=== PATIENT | male | born 1940 | race Caucasian/White ===

== ENCOUNTER 2023-03-10 11:43 | Outpatient (OUT) | payer MEDICARE, SELFPAY ==
[2023-03-10 12:21] LABS: Basophils Absolute Auto 0.1 10^3/uL (0.0-0.1); Basophils Percent Auto 0.6 % (0.2-2.0); Eosinophils Absolute Auto 0.1 10^3/uL (0.0-0.7); Eosinophils Percent Auto 1.4 % (0.9-7.0); Hematocrit 41.1 % (42.0-54.0); Hemoglobin 13.5 g/dL (14.0-18.0); Immature Granulocytes Abs Auto 0.03 10^3/uL (0.00-0.03); Immature Granulocytes Pct Auto 0.4 % (0.0-0.5); Lymphocytes Absolute Auto 1.7 10^3/uL (1.2-3.8); Lymphocytes Percent Auto 21.7 % (20.5-60.0); Mean Corpuscular HGB Conc 32.8 g/dL (29.9-35.2); Mean Corpuscular Hemoglobin 31.2 pg (25.9-34.0); Mean Corpuscular Volume 94.9 fL (80.0-94.0); Mean Platelet Volume 11.7 fL (9.5-13.5); Monocytes Absolute Auto 0.7 10^3/uL (0.3-0.8); Monocytes Percent Auto 9.2 % (1.7-12.0); Neutrophils Absolute Auto 5.2 10^3/uL (1.4-6.5); Neutrophils Percent Auto 66.7 % (43.0-75.0); Platelet Count 152 10^3/uL (150-450); Red Blood Count 4.33 10^6/uL (4.70-6.10); Red Cell Distribution Width 13.8 % (11.0-15.0); White Blood Count 7.8 10^3/uL (4.0-11.0)
[2023-03-10 12:41] LABS: Estimated Average Glucose 134 mg/dL; Glycohemoglobin A1C 6.3 % (4.5-6.2)
[2023-03-10 12:49] LABS: Alanine Aminotransferase 21 U/L (16-63); Albumin Globulin Ratio 0.9; Albumin Level 3.7 g/dL (3.4-5.0); Alkaline Phosphatase 95 U/L (46-116); Anion Gap 14.8; Aspartate Amino Transferase 17 U/L (15-37); BUN Creatinine Ratio 20.5; Bilirubin Total 0.7 mg/dL (0.2-1.0); Calcium 9.5 mg/dL (8.5-10.1); Carbon Dioxide 24.7 mmol/L (21.0-32.0); Chloride 105 mmol/L (98-107); Chol HDL Ratio 2.5; Cholesterol 128 mg/dL (<=200); Estimated GFR (African America 45 (>=60); Estimated GFR (Non-African Ame 37 (>=60); Free T3 2.21 pg/mL (2.18-3.98); Globulin 4.2 g/dL; Glucose 100 mg/dL (74-106); HDL Cholesterol 51 mg/dL (40-60); LDL Cholesterol Calculated 57.2 mg/dL; Potassium 4.5 mmol/L (3.5-5.1); Sodium 140 mmol/L (136-145); Thyroid Stimulating Hormone 3.753 uIU/mL (0.358-3.740); Total Protein 7.9 g/dL (6.4-8.2); Triglycerides 99 mg/dL (<=150); VLDL CHOLESTEROL 19.8 mg/dL
[2023-03-10 13:57] LABS: Prostate Specific Antigen Scrn 1.51 ng/mL (<=4.00)
== END 2023-03-10 11:44 | disposition home or self-care (01) ==
LOC: LAB 11:51
PROVIDERS: PCP Family Medicine; Visit Provider Family Medicine
DX: E78.00 Pure hypercholesterolemia, unspecified (principal); I10 Essential (primary) hypertension; E61.1 Iron deficiency; R73.09 Other abnormal glucose; Z12.5 Encounter for screening for malignant neoplasm of prostate
CPT/HCPCS: 36415; 80053; 80061; 83036; 84436; 84443; 84481; 85025; G0103

== ENCOUNTER 2023-04-06 08:21 | Outpatient (OUT) | payer MEDICARE, SELFPAY ==
--- OUTSIDE RECORDS SUMMARY | 2023-04-06 08:25 | XMS_ITS | CCD ---
Author Name Unknown Address [address] [place] [address] Organization [facility] Care Team Providers Care Component Inspector Name Role Phone TEVIN ESTRADA Referring Unavailable SAVANNAH HELM Primary Care Unavailable Savannah Helm Primary Care Provider DR SAVANNAH HELM Attending Unavailable DR SAVANNAH HELM Consulting Unavailable DR SAVANNAH HELM Primary Care Unavailable DR SAVANNAH HELM Admitting Unavailable Medications Current Medications Medication Drug Class(es) Dates Sig (Normalized) Sig (Original) amLODIPine 5 mg oral tablet (1 source) Dihydropyridine Calcium Channel Rachel take 1 tablet by mouth once daily amLODIPine (NORVASC) 5 MG tablet Take 5 mg by mouth daily 0 Active Artificial Tear Ointment (REFRESH LACRI-LUBE OP) (1 source) Artificial Tear Ointment (REFRESH LACRI-LUBE OP) Apply to eye 0 Active aspirin 81 mg delayed release oral tablet (2 sources) Platelet Aggregation Inhibitor, Nonsteroidal Anti-inflammatory Drug Start: 06-15-2017 take 1 tablet by mouth once daily aspirin EC 81 MG EC tablet Take 1 tablet by mouth daily 30 tablet 3 06/15/2017 Active take 1 tablet by mouth once jayant y aspirin 81 MG tablet Take 81 mg by mouth daily 0 Active atorvastatin 40 mg oral tablet (1 source) HMG-CoA Reductase Inhibitor Start: 06-15-2017 take 1 tablet by mouth once daily atorvastatin (LIPITOR) 40 MG tablet Take 1 tablet by mouth daily 30 tablet 3 06/15/2017 Active Problems Problem Classification Problem Date Documented Da te Episodic/Chronic Aortic; peripheral; and visceral artery aneurysms (2 sources) Ruptured abdominal aortic aneurysm; Translations: [Abdominal aortic aneurysm without rupture] Onset: 06-14-2017 Resolved: 06-15-2017 06-15-2017 Chronic Conditions associated with dizziness or vertigo (1 source) Other peripheral vertigo, unspecified ear; Translations: [OTHER PERIPHERAL VERTIGO UNS EAR] Onset: 02-09-2022 Episodic Deficiency and other anemia (1 source) Anemia, unspecified; Translations: [ANEMIA UNSPECIFIED] Onset: 02-09-2022 Episodic Diabetes mellitus without complication (1 source) Other abnormal glucose; Translations: [OTHER ABNORMAL GLUCOSE] Onset: 02-09-2022 Episodic Disorders of lipid metabolism (1 source) Hyperlipidemia, unspecified; Translations: [HYPERLIPIDEMIA UNSPECIFIED] Onset: 02-09-2022 Chronic Essential hypertension (4 sources) Essential (primary) hypertension; Translations: [ESSENTIAL PRIMARY HYPERTENSION] Onset: 02-05-2022 Chronic Gout and other crystal arthropathies (1 source) Gout, unspecified; Translations: [GOUT UNSPECIFIED] Onset: 02-09-2022 Chronic Other screening for suspected conditions (not mental disorders or infectious disease) (1 source) Encounter for screening for malignant neoplasm of prostate; Translations: [ENC SCREEN MALIG NEOPLASM PROSTATE] Onset: 02-09-2022 Episodic Substance-related disorders (1 source) Smoker; Translations: [Smoking] Onset: 06-15-2017 06-15-2017 Chronic Results Test Name Value Interpretation Reference Range Facil ity INSULINon 02-07-2022 Insulin 14.6 uIU/mL Normal 2.6-24.9 [facility] Comment on above: Performed By: #### I NSULIN #### [facility] [address] [place] [address] Dr. Gladys Wisdom CBC AUTO DIFFon 02-05-2022 BASO # 0.0 103/ul Normal 0.0-0.1 [facility] Comment on above: Performed By: #### C BC #### [facility] [address] [place] [address] Dr. Gladys Wisdom Basophils/100 WBC (Bld) 0.6 % Normal 0.2-2.0 [facility] Comment on above: Performed By: #### C BC #### [facility] [address] [place] [address] Dr. Gladys Wisdom EO # 0.2 103/ul Normal 0.0-0.7 [facility] Comment on above: Performed By: #### C BC #### [facility] [address] [place] [address] Dr. Gladys Wisdom Eosinophils/100 WBC (Bld) 3.3 % Normal 0.9-7.0 [facility] Comment on above: Performed By: #### C BC #### [facility] [address] [place] [address] Dr. Gladys Wisdom Erythrocyte distribution width (RBC) [Ratio] 14.2 % Normal 11.0-15.0 [facility] Comment on above: Performed By: #### C BC #### [facility] [address] [place] [address] Dr. Gladys Wisdom Hematocrit (Bld) [Volume fraction] 40.2 % Critically low 42.0-54.0 [facility] Comment on above: Performed By: #### C BC #### [facility] [address] [place] [address] Dr. Gladys Wisdom Hemoglobin (Bld) [Mass/Vol] 13.2 g/dL Critically low 14.0-18.0 [facility] Comment on above: Performed By: #### C BC #### [facility] [address] [place] [address] Dr. Gladys Wisdom IG # 0.02 10e3/ul Normal 0.00-0.03 [facility] Comment on above: Performed By: #### C BC #### [facility] [address] [place] [address] Dr. Gladys Wisdom IG % 0.3 % Normal 0.0-0.5 [facility] Comment on above: Performed By: #### C BC #### [facility] [address] [place] [address] Dr. Gladys Wisdom LYMPH # 1.6 103/ul Normal 1.2-3.8 [facility] Comment on above: Performed By: #### C BC #### [facility] [address] [place] [address] Dr. Gladys Wisdom Lymphocytes/100 WBC (Bld) 22.7 % Normal 20.5-60.0 [facility] Comment on above: Performed By: #### C BC #### [facility] [address] [place] [address] Dr. Gladys Wisdom MANUAL DIFF REQ NO Normal [facility] Comment on above: Performed By: #### C BC #### [facility] [address] [place] [address] Dr. Gladys Wisdom MCH (RBC) [Entitic mass] 31.1 pg Normal 25.9-34.0 [facility] Comment on above: Performed By: #### C BC #### [facility] [address] [place] [address] Dr. Gladys Wisdom MCHC (RBC) [Mass/Vol] 32.8 g/dL Normal 29.9-35.2 [facility] Comment on above: Performed By: #### C BC #### [facility] [address] [place] [address] Dr. Gladys Wisdom MCV (RBC) [Entitic vol] 94.8 fL Critically high 80.0-94.0 [facility] Comment on above: Performed By: #### C BC #### [facility] [address] [place] [address] Dr. Gladys Wisdom MONO # 0.7 103/ul Normal 0.3-0.8 [facility] Comment on above: Performed By: #### C BC #### [facility] [address] [place] [address] Dr. Gladys Wisdom Monocytes/100 WBC (Bld) 9.8 % Normal 1.7-12.0 [facility] Comment on above: Performed By: #### C BC #### [facility] [address] [place] [address] Dr. Gladys Wisdom NEUT # 4.5 103/ul Normal 1.4-6.5 [facility] Comment on above: Performed By: #### C BC #### [facility] [address] [place] [address] Dr. Gladys Wisdom Neutrophils/100 WBC (Bld) 63.3 % Normal 43.0-75.0 [facility] Comment on above: Performed By: #### C BC #### [facility] [address] [address] [address] Gladys Wisdom Platelet mean volume (Bld) [Entitic vol] 11.7 fL Normal 9.5-13.5 [facility] Comment on above: Performed By: #### C BC #### [facility] [address] [address] [address] Gladys Wisdom PLT 130 103/ul Critically low 150-450 [facility] Comment on above: Performed By: #### C BC #### [facility] [address] [address] [address] Gladys Wisdom RBC 4.24 106/ul Critically low 4.70-6.10 [facility] Comment on above: Performed By: #### C BC #### [facility] [address] [address] [address] Gladys Wisdom WBC 7.1 103/ul Normal 4.0-11.0 [facility] Comment on above: Performed By: #### C BC #### [facility] [address] [address] [address] Gladys Wisdom FREE THYROXINE INDEX T7on FTI 2.00 Normal 1.30-4.50 [facility] Comment on above: Performed By: #### T 7, URIC, LIPID, CMP, TSH #### [facility] [address] [place] [address] Dr. Gladys Wisdom T3U 35.0 % Normal 33.0-40.0 [facility] Comment on above: Performed By: #### T 7, URIC, LIPID, CMP, TSH #### [facility] [address] [address] [address] Gladys Wisdom T4 [Mass/Vol] 5.70 ug/dL Normal 4.50-12.10 [facility] Comment on above: Performed By: #### T 7, URIC, LIPID, CMP, TSH #### [facility] [address] [address] [address] Gladys Wisdom GLYCOHEMOGLOBIN A1Con 2021 ADA RECOMMENDATION SEE BELOW Normal [facility] Comment on above: Result Comment: ADA RECOMMENDED LIMIT 4.0 - 6.0 ADA THERAPEUTIC TARGET < 7.0 ACTION SUGGESTED > 7.0 Performed By: #### A 1C #### [facility] [address] [address] [address] Gladys Wisdom Glucose [Mass/Vol] 123 mg/dL Normal [facility] Comment on above: Performed By: #### A 1C #### [facility] [address] [address] [address] Gladys Wisdom HbA1c (Bld) [Mass fraction] 5.9 % Normal 4.5-6.2 [facility] Comment on above: Performed By: #### A 1C #### [facility] [address] [address] [address] Gladys Wisdom IRONon 02-05-2022 Iron [Mass/Vol] 54.0 ug/dL Critically low 65.0-175.0 [facility] Comment on above: Performed By: #### Vinod HECTOR PSASC #### [facility] [address] [address] [address] Gladys Wisdom LIPID PROFILEon 02-05-2022 CHOL-HDL RATIO NORM SEE BELOW Normal [facility] Comment on above: Result Comment: 3.3 - 4.4 LOW RISK 4.4 - 7.1 AVERAGE RISK 7.1 - 11.0 MODERATE RISK >11.0 HIGH RISK Performed By: #### T 7, URIC, LIPID, CMP, TSH #### [facility] [address] [address] [address] Gladys Wisdom Cholesterol [Mass/Vol] 116 mg/dL Normal <=200 [facility] Comment on above: Performed By: #### T 7, URIC, LIPID, CMP, TSH #### [facility] [address] [address] [address] Gladys Wisdom Cholesterol in HDL [Mass/Vol] 48 mg/dL Normal 40-60 [facility] Comment on above: Performed By: #### T 7, URIC, LIPID, CMP, TSH #### [facility] [address] [address] [address] Gladys Wisdom Cholesterol in LDL [Mass/Vol] 50.0 mg/dL Normal [facility] Comment on above: Performed By: #### T 7, URIC, LIPID, CMP, TSH #### [facility] [address] [address] [address] Gladys Wisdom Cholesterol.total/Cho lesterol in HDL [Mass ratio] 2.4 {ratio} Normal [facility] Comment on above: Performed By: #### T 7, URIC, LIPID, CMP, TSH #### [facility] [address] [address] [address] Gladys Wisdom HDL NORMAL > or = 60 mg/dl - LOW CARDIOVASCULAR RISK <40 mg/dl - HIGH CARDIOVASCULAR RISK Normal [facility] Comment on above: Performed By: #### T 7, URIC, LIPID, CMP, TSH #### [facility] [address] [address] [address] Gladys Wisdom LDL CALC NORMAL SEE BELOW Normal [facility] Comment on above: Result Comment: <100 mg/dl OPTIMAL 100 - 129 mg/dl NEAR OR ABOVE OPTIMAL 130 - 159 mg/dl BORDERLINE HIGH 160 - 189 mg/dl HIGH >190 mg/dl VERY HIGH Performed By: #### T 7, URIC, LIPID, CMP, TSH #### [facility] [address] [address] [address] Gladys Wisdom Triglyceride [Mass/Vol] 90 mg/dL Normal <=150 [facility] Comment on above: Performed By: #### T 7, URIC, LIPID, CMP, TSH #### [facility] [address] [address] [address] Gladys Wisdom VLDL CALC 18.0 mg/dL Normal [facility] Comment on above: Performed By: #### T 7, URIC, LIPID, CMP, TSH #### [facility] [address] [address] [address] Gladys Wisdom PROF 14(COMP METB)on 022 Albumin [Mass/Vol] 3.6 g/dL Normal 3.4-5.0 [facility] Comment on above: Performed By: #### T 7, URIC, LIPID, CMP, TSH #### [facility] [address] [address] [address] Gladys Wisdom Albumin/Globulin [Mass ratio] 0.9 {ratio} Normal [facility] Comment on above: Performed By: #### T 7, URIC, LIPID, CMP, TSH #### [facility] [address] [address] [address] Gladys Wisdom ALP [Catalytic activity/Vol] 89 U/L Normal 46-116 [facility] Comment on above: Performed By: #### T 7, URIC, LIPID, CMP, TSH #### [facility] [address] [address] [address] Gladys Wisdom ALT [Catalytic activity/Vol] 24 U/L Normal 16-63 [facility] Comment on above: Performed By: #### T 7, URIC, LIPID, CMP, TSH #### [facility] [address] [place] [address] Dr. Gladys Wisdom Anion gap [Moles/Vol] 13.3 mmol/L Normal [facility] Comment on above: Performed By: #### T 7, URIC, LIPID, CMP, TSH #### [facility] [address] [place] [address] Dr. Gladys Wisdom AST [Catalytic activity/Vol] 12 U/L Critically low 15-37 [facility] Comment on above: Performed By: #### T 7, URIC, LIPID, CMP, TSH #### [facility] [address] [place] [address] Dr. Gladys Wisdom Bilirubin [Mass/Vol] 0.5 mg/dL Normal 0.2-1.0 [facility] Comment on above: Performed By: #### T 7, URIC, LIPID, CMP, TSH #### [facility] [address] [place] [address] Dr. Gladys Wisdom Calcium [Mass/Vol] 9.2 mg/dL Normal 8.5-10.1 [facility] Comment on above: Performed By: #### T 7, URIC, LIPID, CMP, TSH #### [facility] [address] [place] [address] Dr. Gladys Wisdom Chloride [Moles/Vol] 107 mmol/L Normal 98-107 [facility] Comment on above: Performed By: #### T 7, URIC, LIPID, CMP, TSH #### [facility] [address] [address] [address] Gladys Wisdom CO2 [Moles/Vol] 25.1 mmol/L Normal 21.0-32.0 [facility] Comment on above: Performed By: #### T 7, URIC, LIPID, CMP, TSH #### [facility] [address] [place] [address] Dr. Gladys Wisdom Creatinine [Mass/Vol] 1.78 mg/dL Critically high 0.70-1.30 [facility] Comment on above: Performed By: #### T 7, URIC, LIPID, CMP, TSH #### [facility] [address] [place] [address] Dr. Gladys Wisdom EGFR-AF ALGERIAN 45 mL/min/1.73m2 Critically low >=60 [facility] Comment on above: Performed By: #### T 7, URIC, LIPID, CMP, TSH #### [facility] [address] [place] [address] Dr. Gladys Wisdom EGFR-NON AF ALGERIAN 37 mL/min/1.73m2 Critically low >=60 [facility] Comment on above: Performed By: #### T 7, URIC, LIPID, CMP, TSH #### [facility] [address] [place] [address] Dr. Gladys Wisdom Globulin (S) [Mass/Vol] 4.1 g/dL Normal [facility] Comment on above: Performed By: #### T 7, URIC, LIPID, CMP, TSH #### [facility] [address] [place] [address] Dr. Gladys Wisdom Glucose [Mass/Vol] 124 mg/dL Critically high 74-106 [facility] Comment on above: Performed By: #### T 7, URIC, LIPID, CMP, TSH #### [facility] [address] [place] [address] Dr. Gladys Wisdom Potassium [Moles/Vol] 4.4 mmol/L Normal 3.5-5.1 [facility] Comment on above: Performed By: #### T 7, URIC, LIPID, CMP, TSH #### [facility] [address] [place] [address] Dr. Gladys Wisdom Protein [Mass/Vol] 7.7 g/dL Normal 6.4-8.2 [facility] Comment on above: Performed By: #### T 7, URIC, LIPID, CMP, TSH #### [facility] [address] [place] [address] Dr. Gladys Wisdom Sodium [Moles/Vol] 141 mmol/L Normal 136-145 [facility] Comment on above: Performed By: #### T 7, URIC, LIPID, CMP, TSH #### [facility] [address] [address] [address] Gladys Wisdom Urea nitrogen [Mass/Vol] 27.0 mg/dL Critically high 7.0-18.0 [facility] Comment on above: Performed By: #### T 7, URIC, LIPID, CMP, TSH #### [facility] [address] [place] [address] Dr. Gladys Wisdom Urea nitrogen/Creatinine [Mass ratio] 15.2 mg/mg Normal [facility] Comment on above: Performed By: #### T 7, URIC, LIPID, CMP, TSH #### [facility] [address] [place] [address] Dr. Gladys Wisdom TSHon 02-05-2022 TSH 3.224 uIU/mL Normal 0.358-3.740 [facility] Comment on above: Performed By: #### T 7, URIC, LIPID, CMP, TSH #### [facility] [address] [place] [address] Dr. Gladys Wisdom URIC ACID SERUMon 02-05-2022 Urate [Mass/Vol] 7.8 mg/dL Critically high 3.5-7.2 [facility] Comment on above: Performed By: #### T 7, URIC, LIPID, CMP, TSH #### [facility] [address] [place] [address] Dr. Gladys Wisdom VL ABDOMINAL AORTA DUPLEX SC ANon 12-23-2019 [facility] Vascular Endovascular Graft and Aortic Iliac Procedure Patient Name SHETH Date of Study 12/23/2019 FILIBERTO Hall Date of 1940 Gender Male Age 79 year(s) Race Room Number OP Corporate ID [id number] # Patient Acct [id number] # MR # [id number] Cardiology Manager Wilver Borrego RVT Interpreting Physician Severiano Mark Referring Referring Physician Tevin Estrada Nurse Practitioner Procedure Type of Study: Abdominal: Endovascular Graft, Post Aortic Stent Graft Evaluation, Aortic Iliac. Indications for Study:AAA and Post-op for vascular reconstruction or endovascula. Patient Status:In Patient. Technical Quality:Limited visualization. Conclusions Summary Technically limited visualization. Possible endoleak as noted. Signature ---- ---- ---- ---- Unilateral Impression: Prior aneurysm is difficult to visualize. Old aneurysm measures 4.64 x 4.14 cm. Very slight bit of possible color flow noted in anterior view of the aneurysmal sac. Good color flow noted in endograft. Difficulty obtaining color flow in the proximal to mid portion of the left limb however doppler signals are noted. Difficulty obtaining color flow at the origin of the left renal artery but doppler signal obtained at the proximal-mid left renal artery. Risk Factors History + +---- ------+--------+ !Diagnosis !Date !Comments! + +---- ------+--------+ !Peripheral vascular disease->Aortic aneurysm !06/14/2017!EVAR ! + +---- ------+--------+ Comments: Notes state ruptured aneurysm with endograft Allergies - Allergy:*No Known Allergies(Miscellane ous). Velocities are measured in cm/s ; Diameters are measured in cm Graft Duplex Measurements - + -+----+----+-------- --------+ + !Location !PSV !EDV !AP Diam !Trans Diam ! + -+----+----+-------- --------+ + !Prox Graft !53.8!11.6!2.21 !2.38 ! + -+----+----+-------- --------+ + !Mid Graft !70.5!13.8!2.48 !2.37 ! + -+----+----+-------- --------+ + !Dist Graft !30.4!7.94!2.74 !2.59 ! + -+----+----+-------- --------+ + !Right Limb !62.6!12.4! ! ! + -+----+----+-------- --------+ + !Left Limb !42.8!7.94! ! ! + -+----+----+-------- --------+ + !Right Iliac !114 ! ! ! ! + -+----+----+-------- --------+ + !Left Iliac !94.6! !0.85 !0.92 ! + -+----+----+-------- --------+ + !Right Renal !243 !47.9! ! ! + -+----+----+-------- --------+ + !Left Renal !131 !31 ! ! ! + -+----+----+-------- --------+ + Velocities are measured in cm/s ; Diameters are measured in cm Aorto Iliac Duplex Measurements + +---- +----+ +-- + !Location !PSV !EDV !AP Diam !Trans Diam ! + +---- +----+ +-- + !Prox Aorta !53.8!11.6!2.21 !2.38 ! + +---- +----+ +-- + !Ostial Celiac Trunk !119 !18.9! ! ! + +---- +----+ +-- + !Ostial SMA !243 !46.1! ! ! + +---- +----+ +-- + !Mid Aorta !70.5!13.8!2.9 !2.44 ! + +---- +----+ +-- + !Dist Aorta !30.9!8.82!2.74 !2.59 ! + +---- +----+ +-- + + ++---- -+----+------+------ ---++----+----+----- -+ + ! !!Right! !Left ! !! ! ! ! ! + ++---- -+----+------+------ ---++----+----+----- -+ + !Location !!PSV !EDV !AP !Trans !!PSV !EDV !AP !Trans Diam ! ! !! ! !Diam !Diam !! ! !Diam ! ! + ++---- -+----+------+------ ---++----+----+----- -+ + !Renal !!243 !47.9! ! !!131 !31 ! ! ! + ++---- -+----+------+------ ---++----+----+----- -+ + !BARRY !!62.6 !12.4!1.07 !1.13 !!42.8!7.94!0.99 !1.45 ! + ++---- -+----+------+------ ---++----+----+----- -+ + !Dist EIA !!114 ! ! ! !!94.6! !0.85 !0.92 ! + ++---- -+----+------+------ ---++----+----+----- -+ + !Common !!129 !2.35!1.1 !1.23 !!79.6!0 !1.18 !1.15 ! !Femoral !! ! ! ! !! ! ! ! ! + ++---- -+----+------+------ ---++----+----+----- -+ + [facility]- [place], [place], pn Incoming Cardio Results From [facility]/ - 12/23/2019 11:50 PM EDT [facility] Vascular Endovascular Graft and Aortic Iliac Procedure Patient Name MERYL Date of Study 12/23/2019 FILIBERTO Hall Date of 1940 Gender Male Age 79 year(s) Race Room Number OP Corporate ID [id number] # Patient Acct [id number] # MR # [id number] Cardiology Manager Wilver Borrego RVT Interpreting Physician Severiano Mark Referring Referring Physician Tevin Estrada Nurse Practitioner Procedure Type of Study: Abdominal: Endovascular Graft, Post Aortic Stent Graft Evaluation, Aortic Iliac. Indications for Study:AAA and Post-op for vascular reconstruction or endovascula. Patient Status:In Patient. Technical Quality:Limited visualization. Conclusions Summary Technically limited visualization. Possible endoleak as noted. Signature ---- ---- ---- ---- Unilateral Impression: Prior aneurysm is difficult to visualize. Old aneurysm measures 4.64 x 4.14 cm. Very slight bit of possible color flow noted in anterior view of the aneurysmal sac. Good color flow noted in endograft. Difficulty obtaining color flow in the proximal to mid portion of the left limb however doppler signals are noted. Difficulty obtaining color flow at the origin of the left renal artery but doppler signal obtained at the proximal-mid left renal artery. Risk Factors History + +---- ------+-------- + !Diagnosis !Date !Comments! + +---- ------+-------- + !Peripheral vascular disease->Aortic aneurysm !06/14/2017!EVAR ! + +---- ------+-------- + Comments: Notes state ruptured aneurysm with endograft Allergies - Allergy:*No Known Allergies(Rose Marie salas). Velocities are measured in cm/s ; Diameters are measured in cm Graft Duplex Measurements - + -+----+----+-------- --------+ + !Location !PSV !EDV !AP Diam !Trans Diam ! + -+----+----+-------- --------+ + !Prox Graft !53.8!11.6!2.21 !2.38 ! + -+----+----+-------- --------+ + !Mid Graft !70.5!13.8!2.48 !2.37 ! + -+----+----+-------- --------+ + !Dist Graft !30.4!7.94!2.74 !2.59 ! + -+----+----+-------- --------+ + !Right Limb !62.6!12.4! ! ! + -+----+----+-------- --------+ + !Left Limb !42.8!7.94! ! ! + -+----+----+-------- --------+ + !Right Iliac !114 ! ! ! ! + -+----+----+-------- --------+ + !Left Iliac !94.6! !0.85 !0.92 ! + -+----+----+-------- --------+ + !Right Renal !243 !47.9! ! ! + -+----+----+-------- --------+ + !Left Renal !131 !31 ! ! ! + -+----+----+-------- --------+ + Velocities are measured in cm/s ; Diameters are measured in cm Aorto Iliac Duplex Measurements + +---- +----+ +-- + !Location !PSV !EDV !AP Diam !Trans Diam ! + +---- +----+ +-- + !Prox Aorta !53.8!11.6!2.21 !2.38 ! + +---- +----+ +-- + !Ostial Celiac Trunk !119 !18.9! ! ! + +---- +----+ +-- + !Ostial SMA !243 !46.1! ! ! + +---- +----+ +-- + !Mid Aorta !70.5!13.8!2.9 !2.44 ! + +---- +----+ +-- + !Dist Aorta !30.9!8.82!2.74 !2.59 ! + +---- +----+ +-- + + ++---- -+----+------+------ ---++----+----+----- -+ + ! !!Right! !Left ! !! ! ! ! ! + ++---- -+----+------+------ ---++----+----+----- -+ + !Location !!PSV !EDV !AP !Trans !!PSV !EDV !AP !Trans Diam ! ! !! ! !Diam !Diam !! ! !Diam ! ! + ++---- -+----+------+------ ---++----+----+----- -+ + !Renal !!243 !47.9! ! !!131 !31 ! ! ! + ++---- -+----+------+------ ---++----+----+----- -+ + !BARRY !!62.6 !12.4!1.07 !1.13 !!42.8!7.94!0.99 !1.45 ! + ++---- -+----+------+------ ---++----+----+----- -+ + !Dist EIA !!114 ! ! ! !!94.6! !0.85 !0.92 ! + ++---- -+----+------+------ ---++----+----+----- -+ + !Common !!129 !2.35!1.1 !1.23 !!79.6!0 !1.18 !1.15 ! !Femoral !! ! ! ! !! ! ! ! ! + ++---- -+----+------+------ ---++----+----+----- -+ + [facility]- [place], [place] Encounters Encounter Date Encounter Type Care Provider Facility Start: 02-05-2022 End: 02-06-[address] SAVANNAH HELM Facility:H1 Start: 12-23-2019 End: 12-24-2019 Patient encounter procedure TEVIN Manzo [facility] Start: 12-23-2019 End: 12-23-2019 Subsequent hospital visit by physician [facility] Comment on above: Arrived Procedures Date Procedure Procedure Detail Performing Clinician Start: 02-05-[address] CELESTINO HELM Comment on above: Performed By: #### I KRUNAL, PSASC #### [facility] [address] [address] [address] Gladys Wisdom Start: 12-23-2019 Dup-scan artl jd abdl/pel/scrot&/rpr orgn lmt TEVIN ARENASRADHA Start: 12-23-2019 Dup-scan artl jd abdl/pel/scrot&/rpr [facility] Start: 12-23-2019 VL ABDOMINAL AORTA D UPLEX SCAN Venancio Marks Work Phone: Plan of Treatment Date Care Activity Detail Author Start: 12-10-2019 Influenza vaccination Flu vaccine (# 1) [place], [place] Start: 09-30-2018 Annual Wellness Visi t (AWV) Annual Wellness Visit (AWV) [place] Start: 02-17-2004 Pneumococcal 65+ yea rs Vaccine (1 of 1 - PPSV23) Pneumococcal 65+ years Vaccine (1 of 1 - PPSV23) [place], [place] Start: 1989 Shingles Vaccine (1 of 2) Shingles V accine (1 of 2) [place], [place] Start: 1958 DTaP/Tdap/Td vaccine (1 - Tdap) DTaP/Tdap/Td vaccine (1 - Tdap) [place], [place] Start: 1949 Lipid panel Lipid screen [place] Payers Date Payer Category Payer Medicare [id number] 1960 Private Health Insurance [id number] 1940 Unknown [id number] 1940 Unknown [id number] Social History Date Type Detail Facility Start: 12-23-2019 Tobacco smoking stat us NHIS Current every day smoker [place], [place] Start: 12-23-2019 Cigarettes smoked current (pack per day) - Reported [place] Start: 12-23-2019 Tobacco use and exposure Never used [place] Start: 12-23-2019 Alcohol intake Current drinke r of alcohol (finding) [place] Start: 06-14-2017 Alcohol Comment occassional [facility] [place], [place] Sex Assigned At Not on file [place], [place] Summary Purpose Family History No Family History Records FoundNo Family History Records Found Advance Directives No Advanced Directives Records FoundDocuments on File Type Date Recorded Patient Industrial Machinery Mechanic Expl anation ACP-Advance Directive ACP-Power of Director Of Billing Latest Code Status on File Code Status Date Activated Date Inactivated Comments Full Code 06/15/2017 2:51 AM 06/15/2017 5:14 PM Additional Source Comments (unrecognized sect ion and content) No Status Records FoundNo Status Records Found INFORMATION SOURCE (unrecogn ized section and content) DATE CREATED AUTHOR 12/24/2019 [facility] DATE CREATED AUTHOR AUTHOR'S ORGANIZ ATION 02/10/2022 [facility] Reason for Visit (unrecogniz ed section and content) Status Reason Specialty Diagnoses / Procedures Referre d By Contact Referred To Contact Closed Radiology Diagnoses 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 This clinical summary was aggregated from multiple sources. Caution should be exercised in using it in the provision of clinical care. This summary normalizes information from multiple sources, and as a consequence, information in this document may materially change the coding, format and clinical context of patient data. In addition, data may be omitted in some cases. CLINICAL DECISIONS SHOULD BE BASED ON THE PRIMARY CLINICAL RECORDS. [facility] [employer] [facility]. provides no warranty or guarantee of the accuracy or completeness of information in this document.
[2023-04-06 09:18] LABS: Free T3 2.17 pg/mL (2.18-3.98); Thyroid Stimulating Hormone 1.251 uIU/mL (0.358-3.740)
== END 2023-04-06 08:22 | disposition home or self-care (01) ==
LOC: LAB 08:23
PROVIDERS: PCP Family Medicine; Visit Provider Family Medicine
DX: E03.9 Hypothyroidism, unspecified (principal)
CPT/HCPCS: 36415; 84436; 84443; 84481

== ENCOUNTER 2024-02-29 08:33 | Outpatient (OUT) | payer MEDICARE, OTHER, SELFPAY ==
--- OUTSIDE RECORDS SUMMARY | 2024-02-29 08:40 | XMS_ITS | CCD ---
Author Organization [facility] Care Team Providers Care Records Management Coordinator Name Role Phone TEVIN ESTRADA Referring Unavailable [...] INSULINon 02-07-2022 Insulin 14.6 uIU/mL Normal 2.6-24.9 [facility] Comment on above: Performed By: #### I NSULIN #### [facility] [address] [place] [address] Dr. Gladys Wisdom CBC AUTO DIFFon 02-05-2022 BASO # 0.0 103/ul Normal 0.0-0.1 [facility] Comment on above: Performed By: #### C BC #### [facility] [address] [place] [address] Dr. Gladys Wisdom Basophils/100 WBC (Bld) 0.6 % Normal 0.2-2.0 [facility] Comment on above: Performed By: #### C BC #### [facility] [address] [place] [address] Dr. Gladsy Wisdom EO # 0.2 103/ul Normal 0.0-0.7 [facility] Comment on above: Performed By: #### C BC #### [facility] [address] [place] [address] Dr. Gladys Wisdom Eosinophils/100 WBC (Bld) 3.3 % Normal 0.9-7.0 [facility] Comment on above: Performed By: #### C BC #### [facility] [address] [place] [address] Dr. Glayds Wisdom Erythrocyte distribution width (RBC) [Ratio] 14.2 % Normal 11.0-15.0 [facility] Comment on above: Performed By: #### C BC #### [facility] [address] [place] [address] Dr. Gladys Wisdom Hematocrit (Bld) [Volume fraction] 40.2 % Critically low 42.0-54.0 [facility] Comment on above: Performed By: #### C BC #### [facility] [address] [place] [address] Dr. Gladys Wisdom Hemoglobin (Bld) [Mass/Vol] 13.2 g/dL Critically low 14.0-18.0 [facility] Comment on above: Performed By: #### C BC #### [facility] [address] [place] [address] Dr. Gladys Wisdom IG # 0.02 10e3/ul Normal 0.00-0.03 [facility] Comment on above: Performed By: #### C BC #### [facility] [address] [place] [address] Dr. Gladys Wisdom IG % 0.3 % Normal 0.0-0.5 [facility] Comment on above: Performed By: #### C BC #### [facility] [address] [place] [address] Dr. Gladys Wisdom LYMPH # 1.6 103/ul Normal 1.2-3.8 [facility] Comment on above: Performed By: #### C BC #### [facility] [address] [place] [address] Dr. Gladys Wisdom Lymphocytes/100 WBC (Bld) 22.7 % Normal 20.5-60.0 [facility] Comment on above: Performed By: #### C BC #### [facility] [address] [place] [address] Dr. Gladys Wisdom MANUAL DIFF REQ NO Normal [facility] Comment on above: Performed By: #### C BC #### [facility] [address] [address] [address] Gladys Wisdom MCH (RBC) [Entitic mass] 31.1 pg Normal 25.9-34.0 [facility] Comment on above: Performed By: #### C BC #### [facility] [address] [address] [address] Gladys Wisdom MCHC (RBC) [Mass/Vol] 32.8 g/dL Normal 29.9-35.2 [facility] Comment on above: Performed By: #### C BC #### [facility] [address] [place] [address] Dr. Gladys Wisdom MCV (RBC) [Entitic vol] 94.8 fL Critically high 80.0-94.0 [facility] Comment on above: Performed By: #### C BC #### [facility] [address] [place] [address] Dr. Gladys Wisdom MONO # 0.7 103/ul Normal 0.3-0.8 [facility] Comment on above: Performed By: #### C BC #### [facility] [address] [place] [address] Dr. Gladys Wisdom Monocytes/100 WBC (Bld) 9.8 % Normal 1.7-12.0 [facility] Comment on above: Performed By: #### C BC #### [facility] [address] [place] [address] Dr. Gladys Wisdom NEUT # 4.5 103/ul Normal 1.4-6.5 [facility] Comment on above: Performed By: #### C BC #### [facility] [address] [place] [address] Dr. Gladys Wisdom Neutrophils/100 WBC (Bld) 63.3 % Normal 43.0-75.0 [facility] Comment on above: Performed By: #### C BC #### [facility] [address] [place] [address] Dr. Gladys Wisdom Platelet mean volume (Bld) [Entitic vol] 11.7 fL Normal 9.5-13.5 [facility] Comment on above: Performed By: #### C BC #### [facility] [address] [address] [address] Gladys Wisdom PLT 130 103/ul Critically low 150-450 [facility] Comment on above: Performed By: #### C BC #### [facility] [address] [address] [address] Gladys Wisdom RBC 4.24 106/ul Critically low 4.70-6.10 [facility] Comment on above: Performed By: #### C BC #### [facility] [address] [address] [address] Gladys Wisdom WBC 7.1 103/ul Normal 4.0-11.0 [facility] Comment on above: Performed By: #### C BC #### [facility] [address] [place] [address] Dr. Gladys Wisdom FREE THYROXINE INDEX T7on FTI 2.00 Normal 1.30-4.50 [facility] Comment on above: Performed By: #### T 7, URIC, LIPID, CMP, TSH #### [facility] [address] [address] [address] Gladys Wisdom T3U 35.0 % Normal 33.0-40.0 [facility] Comment on above: Performed By: #### T 7, URIC, LIPID, CMP, TSH #### [facility] [address] [place] [address] Dr. Gladys Wisdom T4 [Mass/Vol] 5.70 ug/dL Normal 4.50-12.10 [facility] Comment on above: Performed By: #### T 7, URIC, LIPID, CMP, TSH #### [facility] [address] [place] [address] Dr. Gladys Wisdom GLYCOHEMOGLOBIN A1Con 2021 ADA RECOMMENDATION SEE BELOW Normal [facility] Comment on above: Result Comment: ADA RECOMMENDED LIMIT 4.0 - 6.0 ADA THERAPEUTIC TARGET < 7.0 ACTION SUGGESTED > 7.0 Performed By: #### A 1C #### [facility] [address] [address] [address] Gladys Wisdom Glucose [Mass/Vol] 123 mg/dL Normal [facility] Comment on above: Performed By: #### A 1C #### [facility] [address] [address] [address] Gladys Wisdom HbA1c (Bld) [Mass fraction] 5.9 % Normal 4.5-6.2 [facility] Comment on above: Performed By: #### A 1C #### [facility] [address] [address] [address] Gladys Wisdom IRONon 02-05-2022 Iron [Mass/Vol] 54.0 ug/dL Critically low 65.0-175.0 [facility] Comment on above: Performed By: #### I LATRICIA HECTOR #### [facility] [address] [place] [address] Dr. Gladys Wisdom LIPID PROFILEon 02-05-2022 CHOL-HDL RATIO NORM SEE BELOW Normal [facility] Comment on above: Result Comment: 3.3 - 4.4 LOW RISK 4.4 - 7.1 AVERAGE RISK 7.1 - 11.0 MODERATE RISK >11.0 HIGH RISK Performed By: #### T 7, URIC, LIPID, CMP, TSH #### [facility] [address] [place] [address] Dr. Gladys Wisdom Cholesterol [Mass/Vol] 116 mg/dL Normal <=200 [facility] Comment on above: Performed By: #### T 7, URIC, LIPID, CMP, TSH #### [facility] [address] [place] [address] Dr. Gladys Wisdom Cholesterol in HDL [Mass/Vol] 48 mg/dL Normal 40-60 [facility] Comment on above: Performed By: #### T 7, URIC, LIPID, CMP, TSH #### [facility] [address] [address] [address] Gladys Wisdom Cholesterol in LDL [Mass/Vol] 50.0 mg/dL Normal [facility] Comment on above: Performed By: #### T 7, URIC, LIPID, CMP, TSH #### [facility] [address] [address] [address] Gladys Wisdom Cholesterol.total/Cho lesterol in HDL [Mass ratio] 2.4 {ratio} Normal [facility] Comment on above: Performed By: #### T 7, URIC, LIPID, CMP, TSH #### [facility] [address] [address] [address] Gladys Wisdom HDL NORMAL > or = 60 mg/dl - LOW CARDIOVASCULAR RISK <40 mg/dl - HIGH CARDIOVASCULAR RISK Normal [facility] Comment on above: Performed By: #### T 7, URIC, LIPID, CMP, TSH #### [facility] [address] [address] [address] Gladys Wisdom LDL CALC NORMAL SEE BELOW Normal [facility] Comment on above: Result Comment: <100 mg/dl OPTIMAL 100 - 129 mg/dl NEAR OR ABOVE OPTIMAL 130 - 159 mg/dl BORDERLINE HIGH 160 - 189 mg/dl HIGH >190 mg/dl VERY HIGH Performed By: #### T 7, URIC, LIPID, CMP, TSH #### [facility] [address] [address] [address] Gladys Wisdom Triglyceride [Mass/Vol] 90 mg/dL Normal <=150 [facility] Comment on above: Performed By: #### T 7, URIC, LIPID, CMP, TSH #### [facility] [address] [address] [address] Gladys Wisdom VLDL CALC 18.0 mg/dL Normal [facility] Comment on above: Performed By: #### T 7, URIC, LIPID, CMP, TSH #### [facility] [address] [address] [address] Gladys Wisdom PROF 14(COMP METB)on 022 Albumin [Mass/Vol] 3.6 g/dL Normal 3.4-5.0 [facility] Comment on above: Performed By: #### T 7, URIC, LIPID, CMP, TSH #### [facility] [address] [address] [address] Gladys Wisdom Albumin/Globulin [Mass ratio] 0.9 {ratio} Normal [facility] Comment on above: Performed By: #### T 7, URIC, LIPID, CMP, TSH #### [facility] [address] [place] [address] Dr. Gladys Wisdom ALP [Catalytic activity/Vol] 89 U/L Normal 46-116 [facility] Comment on above: Performed By: #### T 7, URIC, LIPID, CMP, TSH #### [facility] [address] [place] [address] Dr. Gladys Wisdom ALT [Catalytic activity/Vol] 24 U/L Normal 16-63 [facility] Comment on above: Performed By: #### T 7, URIC, LIPID, CMP, TSH #### [facility] [address] [place] [address] Dr. Gladys Wisdom Anion gap [Moles/Vol] 13.3 mmol/L Normal [facility] Comment on above: Performed By: #### T 7, URIC, LIPID, CMP, TSH #### [facility] [address] [place] [address] Dr. Gladys Wisdom AST [Catalytic activity/Vol] 12 U/L Critically low 15-37 [facility] Comment on above: Performed By: #### T 7, URIC, LIPID, CMP, TSH #### [facility] [address] [place] [address] Dr. Gladys Wisdom Bilirubin [Mass/Vol] 0.5 mg/dL Normal 0.2-1.0 [facility] Comment on above: Performed By: #### T 7, URIC, LIPID, CMP, TSH #### [facility] [address] [place] [address] Dr. Gladys Wisdom Calcium [Mass/Vol] 9.2 mg/dL Normal 8.5-10.1 [facility] Comment on above: Performed By: #### T 7, URIC, LIPID, CMP, TSH #### [facility] [address] [place] [address] Dr. Gladys Wisdom Chloride [Moles/Vol] 107 mmol/L Normal 98-107 [facility] Comment on above: Performed By: #### T 7, URIC, LIPID, CMP, TSH #### [facility] [address] [address] [address] Gladys Wisdom CO2 [Moles/Vol] 25.1 mmol/L Normal 21.0-32.0 [facility] Comment on above: Performed By: #### T 7, URIC, LIPID, CMP, TSH #### [facility] [address] [place] [address] Dr. Gladys Wisdom Creatinine [Mass/Vol] 1.78 mg/dL Critically high 0.70-1.30 [facility] Comment on above: Performed By: #### T 7, URIC, LIPID, CMP, TSH #### [facility] [address] [place] [address] Dr. Gladys Wisdom EGFR-AF CHILEAN 45 mL/min/1.73m2 Critically low >=60 [facility] Comment on above: Performed By: #### T 7, URIC, LIPID, CMP, TSH #### [facility] [address] [place] [address] Dr. Glayds Wisdom EGFR-NON AF CHILEAN 37 mL/min/1.73m2 Critically low >=60 [facility] Comment on above: Performed By: #### T 7, URIC, LIPID, CMP, TSH #### [facility] [address] [place] [address] Dr. Gladys Wisdom Globulin (S) [Mass/Vol] 4.1 g/dL Normal [facility] Comment on above: Performed By: #### T 7, URIC, LIPID, CMP, TSH #### [facility] [address] [place] [address] Dr. Gladys Wisdom Glucose [Mass/Vol] 124 mg/dL Critically high 74-106 [facility] Comment on above: Performed By: #### T 7, URIC, LIPID, CMP, TSH #### [facility] [address] [place] [address] Dr. Gladys Wisdom Potassium [Moles/Vol] 4.4 mmol/L Normal 3.5-5.1 [facility] Comment on above: Performed By: #### T 7, URIC, LIPID, CMP, TSH #### [facility] [address] [place] [address] Dr. Gladys Wisdom Protein [Mass/Vol] 7.7 g/dL Normal 6.4-8.2 [facility] Comment on above: Performed By: #### T 7, URIC, LIPID, CMP, TSH #### [facility] [address] [address] [address] Gladys Wisdom Sodium [Moles/Vol] 141 mmol/L Normal 136-145 [facility] Comment on above: Performed By: #### T 7, URIC, LIPID, CMP, TSH #### [facility] [address] [address] [address] Gladys Wisdom Urea nitrogen [Mass/Vol] 27.0 mg/dL Critically high 7.0-18.0 [facility] Comment on above: Performed By: #### T 7, URIC, LIPID, CMP, TSH #### [facility] [address] [place] [address] Dr. Gladys Wisdom Urea nitrogen/Creatinine [Mass ratio] 15.2 mg/mg Normal [facility] Comment on above: Performed By: #### T 7, URIC, LIPID, CMP, TSH #### [facility] [address] [place] [address] Dr. Gladys Wisdom TSHon 02-05-2022 TSH 3.224 uIU/mL Normal 0.358-3.740 [facility] Comment on above: Performed By: #### T 7, URIC, LIPID, CMP, TSH #### [facility] [address] [place] [address] Dr. Gladys Wisdom URIC ACID SERUMon 02-05-2022 Urate [Mass/Vol] 7.8 mg/dL Critically high 3.5-7.2 [facility] Comment on above: Performed By: #### T 7, URIC, LIPID, CMP, TSH #### [facility] [address] [place] [address] Dr. Gladys Wisdom VL ABDOMINAL AORTA DUPLEX SC ANon 12-23-2019 [facility] Endovascular Graft and Aortic Iliac Procedure Patient Name SHETH Date of Study 12/23/2019 [facility] Date of 1940 Gender Male Age 79 year(s) Race Room Number OP Corporate ID [id number] # Patient Acct [id number] # MR # [id number] Bulker Wilver Borrego RVT Interpreting Physician Severiano Mark Referring Referring Physician Tevin Estrada Nurse Practitioner Procedure Type of Study: Abdominal: Endovascular Graft, Post Aortic Stent Graft Evaluation, Aortic Iliac. Indications for Study:AAA and Post-op for vascular reconstruction or endovascula. Patient Status:In Patient. Technical Quality:Limited visualization. Conclusions Summary Technically limited visualization. Possible endoleak as noted. Signature ---- ---- ---- Electronically signed by Severiano Mark([facility] physician) on 12/23/2019 11:50 PM ---- Unilateral Impression: Prior aneurysm is difficult [...] aneurysm with endograft Allergies - Allergy:*No Known Allergies(Marioncelljohn salas). Velocities are measured in cm/s ; [...] ! + ++---- -+----+------+------ ---++----+----+----- -+ + [facility]- [place], [place] Fito, pn Incoming Cardio Results From [facility] - 12/23/2019 11:50 PM EDT [facility] Endovascular Graft and Aortic Iliac Procedure Patient Name MERYL Date of Study 12/23/2019 [facility] Date of 1940 Gender Male Age 79 year(s) Race Room Number OP Corporate ID [id number] # Patient Acct [id number] # MR # [id number] Bulker Wilver Borrego RVT Interpreting Physician Severiano Mark [...] ! + ++---- -+----+------+------ ---++----+----+----- -+ + [facility]- [place] Encounters Encounter Date Encounter Type Care Provider Facility Start: 02-05-2022 End: 02-06-[address] SAVANNAH HELM Facility: Start: 12-23-2019 End: 12-24-2019 Patient encounter procedure TEVIN ESTRADA [facility] Start: 12-23-2019 End: 12-23-2019 Subsequent hospital visit by physician [facility] Comment on above: Arrived Procedures Date Procedure Procedure Detail Performing Clinician Start: 02-05-[address] CELESTINO HELM Comment on above: Performed By: #### I KRUNAL, PSASC #### [facility] [address] [address] [address] Gladys Wisdom Start: 12-23-2019 Dup-scan artl jd abdl/pel/scrot&/rpr orgn lmt LUCIUSGET ESTRADA Start: 12-23-2019 Dup-scan artl jd abdl/pel/scrot&/[facility] Start: 12-23-2019 VL ABDOMINAL AORTA D UPLEX SCAN Venancio Lilian Marks Work Phone: Plan of Treatment Date Care Activity Detail Author Start: 12-10-2019 Influenza vaccination Flu vaccine (# 1) [place] Start: 09-30-2018 Annual Wellness Visi t (AWV) Annual Wellness Visit (AWV) [place] Start: 02-17-2004 Pneumococcal 65+ yea rs Vaccine (1 of 1 - PPSV23) Pneumococcal 65+ years Vaccine (1 of 1 - PPSV23) [place], [place] Start: 1989 Shingles Vaccine (1 of 2) Shingles V accine (1 of 2) [place], [place] Start: 1958 DTaP/Tdap/Td vaccine (1 - Tdap) DTaP/Tdap/Td vaccine (1 - Tdap) [place], [place] Start: 1949 Lipid panel Lipid screen [place], [place] Payers Date Payer Category Payer Medicare [id number] 1960 Private Health Insurance [id number] 1940 Unknown [id number] 1940 Unknown [id number] Social History Date Type Detail Facility Start: 12-23-2019 Tobacco smoking stat us MDIS [facility] Start: 12-23-2019 Cigarettes smoked current (pack per day) - Reported [facility] Start: 12-23-2019 Tobacco use and exposure Never used [facility] Start: 12-23-2019 Alcohol intake Current drinke r of alcohol (finding) [facility] Start: 06-14-2017 Alcohol Comment occassional [place] Sex Assigned At Not on file [place], [place] Summary Purpose Family History No Family History Records FoundNo Family History Records Found Advance Directives No Advanced Directives Records FoundDocuments on File Type Date Recorded Patient Divinity Teacher Expl anation ACP-Advance Directive ACP-Power of Microstrategy Reports Developer Latest Code Status on File Code Status Date Activated Date Inactivated Comments Full Code 06/15/2017 2:51 AM 06/15/2017 5:14 PM Additional Source Comments (unrecognized sect ion and content) No Status Records FoundNo Status Records Found INFORMATION SOURCE (unrecogn ized section and content) DATE CREATED AUTHOR 12/24/2019 [facility] DATE CREATED AUTHOR AUTHOR'S ORGANIZ ATION 02/10/2022 [facility] Reason for Visit (unrecogniz ed section and content) Status Reason Specialty Diagnoses / Procedures Referre d By Contact Referred To Contact Closed Radiology Diagnoses History of endovascular stent graft for abdominal aortic aneurysm (AAA) Procedures VL ABDOMINAL AORTA DUPLEX SCAN Tevin Estrada MD [address] [place] [address] [id number] [place] [address] FOR RECORDS PERTAINING TO PATIENTS WHO ARE [...] BE BASED ON THE PRIMARY CLINICAL RECORDS. [employer] provides no warranty or guarantee of the accuracy or completeness of information in this document.
[2024-02-29 09:10] LABS: Basophils Absolute Auto 0.1 10^3/uL (0.0-0.1); Basophils Percent Auto 0.7 % (0.2-2.0); Eosinophils Absolute Auto 0.2 10^3/uL (0.0-0.7); Eosinophils Percent Auto 2.1 % (0.9-7.0); Hematocrit 42.2 % (42.0-54.0); Immature Granulocytes Abs Auto 0.02 10^3/uL (0.00-0.03); Immature Granulocytes Pct Auto 0.3 % (0.0-0.5); Lymphocytes Absolute Auto 1.3 10^3/uL (1.2-3.8); Lymphocytes Percent Auto 17.6 % (20.5-60.0); Mean Corpuscular HGB Conc 33.2 g/dL (29.9-35.2); Mean Corpuscular Hemoglobin 31.6 pg (25.9-34.0); Mean Corpuscular Volume 95.3 fL (80.0-94.0); Mean Platelet Volume 11.5 fL (9.5-13.5); Monocytes Absolute Auto 0.6 10^3/uL (0.3-0.8); Monocytes Percent Auto 8.7 % (1.7-12.0); Neutrophils Absolute Auto 5.1 10^3/uL (1.4-6.5); Neutrophils Percent Auto 70.6 % (43.0-75.0); Platelet Count 139 10^3/uL (150-450); Red Blood Count 4.43 10^6/uL (4.70-6.10); Red Cell Distribution Width 13.5 % (11.0-15.0); White Blood Count 7.2 10^3/uL (4.0-11.0)
[2024-02-29 10:03] LABS: Alanine Aminotransferase 24 U/L (16-63); Albumin Globulin Ratio 0.9; Albumin Level 3.4 g/dL (3.4-5.0); Alkaline Phosphatase 88 U/L (46-116); Anion Gap 14.8; Aspartate Amino Transferase 14 U/L (15-37); BUN Creatinine Ratio 15.9; Bilirubin Total 0.6 mg/dL (0.2-1.0); Calcium 9.6 mg/dL (8.5-10.1); Chloride 108 mmol/L (98-107); Chol HDL Ratio 2.1; Cholesterol 120 mg/dL (<=200); Estimated GFR (African America 37 (>=60 mL/min/1.73m^2); Estimated GFR (Non-African Ame 31 (>=60 mL/min/1.73m^2); Free T3 2.45 pg/mL (2.18-3.98); Glucose 111 mg/dL (74-106); HDL Cholesterol 56 mg/dL (40-60); LDL Cholesterol Calculated 48.4 mg/dL; Potassium 4.8 mmol/L (3.5-5.1); Sodium 142 mmol/L (136-145); Thyroid Stimulating Hormone 1.589 uIU/mL (0.358-3.740); Total Protein 7.4 g/dL (6.4-8.2); Triglycerides 78 mg/dL (<=150); VLDL CHOLESTEROL 15.6 mg/dL
[2024-02-29 10:10] LABS: Prostate Specific Antigen Scrn 1.58 ng/mL (<=4.00)
[2024-02-29 10:19] LABS: Estimated Average Glucose 131 mg/dL; Glycohemoglobin A1C 6.2 % (4.5-6.2)
== END 2024-02-29 08:34 | disposition home or self-care (01) ==
LOC: LAB 08:37
PROVIDERS: PCP Family Medicine; Visit Provider Family Medicine
DX: E03.9 Hypothyroidism, unspecified (principal); I10 Essential (primary) hypertension; E61.1 Iron deficiency; E78.00 Pure hypercholesterolemia, unspecified; R53.83 Other fatigue; R73.09 Other abnormal glucose; Z12.5 Encounter for screening for malignant neoplasm of prostate
CPT/HCPCS: 36415; 80053; 80061; 83036; 84436; 84443; 84481; 85025; G0103

== ENCOUNTER 2025-03-11 08:47 | Outpatient (OUT) | payer MEDICARE, OTHER, SELFPAY ==
--- OUTSIDE RECORDS SUMMARY | 2025-03-11 09:01 | XMS_ITS | Clinical Summary ---
Author Organization [facility] Address [address], [address] [place] [address] Care Team Providers Care Partition Assembly Machine Operator Name Role Phone Howard Helm MD Primary Care Provider [phone] Allergies No known active allergies Medications MedicationSigDispense QuantityRefillsLast FilledStart DateEnd DateStatus aspirin 81 MG tablet Take 81 mg by mouth dailyActive Artificial Tear Ointment (REFRESH LACRI-LUBE OP) Apply to eyeActive aspirin EC 81 MG EC tablet Take 1 tablet by mouth daily 30 tablet Active atorvastatin (LIPITOR) 40 MG tablet Take 1 tablet by mouth daily 30 tablet Active amLODIPine (NORVASC) 5 MG tablet Take 5 mg by mouth dailyActive Active Problems ProblemNoted DateDiagnosed EcoxKycojep56/08/2018Ruptured abdominal aortic aneurysm (AAA) Resolved Problems ProblemNoted DateDiagnosed DateResolved DateAAA (abdominal aortic aneurysm) without tokpnyr42 Social History Tobacco UseTypesPacks/DayYears UsedDateSmoking Tobacco: Every DayCigarettes Smokeless Tobacco: NeverAlcohol UseStandard Drinks/WeekCommentsYes0 (1 standard drink = 0.6 oz pure alcohol)occassionalSex and Gender InformationValueDate RecordedSex Assigned at BirthNot on fileLegal VsoRjpo5705/20/2012 5:08 PM EST Gender IdentityNot on fileSexual OrientationNot on file Last Filed Vital Signs Vital SignReadingTime TakenCommentsBlood Vskiaajz525/7109 2:50 PM EDT Ydeyy6469 2:50 PM ENYSlguqxykjpk43.8 ??C (96.4 ??F)12/23/2019 2:50 PM EDTRespiratory Ljkw897712/23/2019 2:50 PM EDTOxygen Khmjisdmfw13%12/23/2019 2:50 PM EDTInhaled Oxygen Concentration--Nwcxyf32.1 kg (203 lb)12/23/2019 2:50 PM EDT Uunztt728.8 cm (5' 10 )12/23/2019 2:50 PM EDTBody Mass Index29.1309 2:50 PM EDT Plan of Treatment Not on file Insurance * Guarantor: Blane Rees EAccount TypeRelation to PatientDate of BirthPhone Billing AddressPersonal/PcljozMnmg1939 [id number] [address] Advance Directives * Full Code (Latest Code Status on File) Date ActivatedDate InactivatedComments06/15/2017 2:51 AM06/15/2017 5:14 PM Care Teams Team MemberRelationshipSpecialtyStart DateEnd Howard Helm MD [address] [place] [address] PCP - GeneralFamily Medicine06/14/17
[2025-03-11 09:24] LABS: Hematocrit 41.9 % (42.0-54.0); Hemoglobin 13.6 g/dL (14.0-18.0); Immature Granulocytes Abs Auto 0.02 10^3/uL (0.00-0.03); Immature Granulocytes Pct Auto 0.3 % (0.0-0.5); Lymphocytes Absolute Auto 1.3 10^3/uL (1.2-3.8); Mean Corpuscular HGB Conc 32.5 g/dL (29.9-35.2); Mean Corpuscular Hemoglobin 31.1 pg (25.9-34.0); Mean Corpuscular Volume 95.7 fL (80.0-94.0); Platelet Count 147 10^3/uL (150-450); Red Blood Count 4.38 10^6/uL (4.70-6.10); White Blood Count 7.1 10^3/uL (4.0-11.0)
[2025-03-11 10:31] LABS: Alanine Aminotransferase 23 U/L (16-63); Albumin Globulin Ratio 0.9; Albumin Level 3.5 g/dL (3.4-5.0); Alkaline Phosphatase 89 U/L (46-116); Anion Gap 12.1; Aspartate Amino Transferase 17 U/L (15-37); Blood Urea Nitrogen 34.0 mg/dL (7.0-18.0); Calcium 9.2 mg/dL (8.5-10.1); Carbon Dioxide 26.2 mmol/L (21.0-32.0); Chloride 108 mmol/L (98-107); Cholesterol 117 mg/dL (<=200); Estimated GFR (African America 40 (>=60 mL/min/1.73m^2); Estimated GFR (Non-African Ame 33 (>=60 mL/min/1.73m^2); Free T3 2.17 pg/mL (2.18-3.98); Globulin 3.9 g/dL; Glucose 120 mg/dL (74-106); HDL Cholesterol 51 mg/dL (40-60); Potassium 4.3 mmol/L (3.5-5.1); Sodium 142 mmol/L (136-145); Thyroid Stimulating Hormone 1.609 uIU/mL (0.358-3.740); Total Protein 7.4 g/dL (6.4-8.2); Triglycerides 67 mg/dL (<=150); Uric Acid 7.7 mg/dL (3.5-7.2); VLDL CHOLESTEROL 13.4 mg/dL
== END 2025-03-11 08:48 | disposition home or self-care (01) ==
LOC: LAB 08:58
PROVIDERS: PCP Family Medicine; Visit Provider Family Medicine
DX: E78.00 Pure hypercholesterolemia, unspecified (principal); I10 Essential (primary) hypertension; E03.9 Hypothyroidism, unspecified; R73.09 Other abnormal glucose; M10.9 Gout, unspecified; Z12.5 Encounter for screening for malignant neoplasm of prostate; D50.9 Iron deficiency anemia, unspecified
CPT/HCPCS: 36415; 80053; 80061; 83036; 83525; 84436; 84443; 84481; 84550; 85025; G0103